=== PATIENT | male | born 1995 | race Caucasian/White ===

== ENCOUNTER 2016-11-25 11:49 | Day surgery (SDC) | payer BC ==
[~2016-11-25 11:49] MED LIST: Bupivacaine 0.25% SDV* 30 ML ONE; Lidocaine 1% INJ* 10 MG/ML 30 ML SDV ONE
[2016-11-25 15:13] VITALS: BP 111/62
--- NOTE | 2016-11-26 07:40 | OP ---
DATE OF OPERATION: 11/25/16 - [facility] DATE OF : [birth year] SURGEON: Pedro Hinojosa MD AIR [employer] OFFICER: JESSIE Reeder ANESTHESIOLOGIST: None. ANESTHESIA: Local only with 1% lidocaine with epinephrine followed by 0.25% Marcaine. PRE-OP DIAGNOSES: 1. Right middle finger tip ulnar soft tissue mass. 2. Right middle finger tip expanding intraosseous bone lesion in the setting of prior open fracture. POST-OP DIAGNOSES: 1. Right middle finger tip ulnar soft tissue mass. 2. Right middle finger tip expanding intraosseous bone lesion in the setting of prior open fracture. OPERATIVE PROCEDURE: 1. Excision of right middle finger tip deep ulnar soft tissue mass. 2. Intralesional curettage with biopsy and cultures of right middle finger distal phalanx intraosseous bone lesion in area of prior open fracture. INDICATIONS: Tushar had the fracture a couple of years ago. He was treated just by closing the skin, healed and nice alignment. He since developed a draining sinus tract on the ulnar side of the finger, which was excised previously. This had done well until recently he has been developing an enlarging soft tissue mass in the ulnar soft tissue of that finger tip. Also the finger tip has remained slightly enlarged and painful. Serial x-rays have showed an expanding intraosseous lesion in the distal radial aspect of the fingertip at the site of the prior open fracture. It is difficult for him to pinch things with that finger, any significant compression applied to that fingertip is quite painful. We talked about treatment options. I think given the fact that the intraosseous lesion is expanding, it did merit curettage to try to get diagnosis, as certainly the diagnosis of a chronic osteomyelitis cannot be definitively ruled out. We also talked about excising the ulnar soft tissue mass. It was getting quite large. He understood risks and benefits. He elected to proceed. ESTIMATED BLOOD LOSS: 5 mL. COMPLICATIONS: None. FINDINGS: The ulnar-sided soft tissue mass had a yellowish appearance. It was well defined and was sitting just right on the periosteum deep. The intraosseous bone lesion was filled with a soft, white type material. DESCRIPTION OF PROCEDURE: Tushar was seen in the preoperative holding area. The correct side, site, and procedure were identified. I anesthetized the finger with 1% lidocaine with bicarbonate. We then came back to the operating room where the arm was prepped and draped in the usual fashion. A formal time- out was performed. I began by infiltrating in the area with 0.25% plain Marcaine. I then exsanguinated the finger with the Tourni-Cot and left that arm proximally. I first turned my attention to the soft tissue mass. It felt like it was somewhat adherent to the under-lying dermis. I thought given the fact that it had potential for infection, I went ahead and ellipsed out a portion of the skin around the mass and took the dissection down sharply right down to the bone ellipsing out the entirety of the mass together with a small margin of healthy tissue. There were some areas where I could see the mass had a yellowish appearance. This entire specimen was handed off and sent to Pathology. The underlying periosteum was curetted off and cleaned up with a [place] blade. Any remaining tissue that had the appearance of being remotely unhealthy was excised with [place] blade. I then irrigated out this wound and the skin was closed with 5-0 nylon interrupted sutures. I then turned my attention to the bone lesion. I brought in the mini C-arm and marked out my incision. The approach was made volarly and just on the radial aspect of the fingertip where I carried the dissection down in a straight line sharply until I got to the distal phalanx. Full-thickness subperiosteal flaps were raised to expose the volar surface of the bone. It was little pooched out in the area of the cyst. I brought in the mini C-arm and just again made sure I was in the exact right location. I then used the curette to puncture through the thin cortical shell. Immediately, a significant amount of white thick creamy material came out. I expanded the cortical bone window to almost the entire size of the lesion. This was curetted out until it was completely cleaned and nothing but bone remained. The dorsal rim and radial rims were very thin. I therefore decided not to bring in the jero as I thought I would likely fracture the remaining distal phalanx. I then took all the specimen that I collected and divided up and sent it off for aerobic, anaerobic, fungal, and mycobacterial cultures as well as a portion of the specimen was sent for permanent pathology. We irrigated the wound out copiously and once I was satisfied that the curettage was complete, I went ahead and closed the skin with some 5-0 nylon interrupted sutures. The wounds were dressed with Xeroform , some one inch Kendrick, and then a [place]an dressing was applied. The Tourni-Cot was released sharply proximally. The fingertip pinked up immediately. He was then taken to the recovery room in stable condition. [id number]/[facility] #: [id number] MTDD
--- NOTE | 2016-11-26 10:46 | RAD ---
INDICATION: Fluoroscopic guidance operative procedure on lesion in the distal phalanx of the RIGHT third finger. COMPARISON: November 12, 2016 radiographs. TECHNIQUE: 5 seconds fluoroscopy. FINDINGS: Spot image documents and instrument at the level of the well-circumscribed lucent lesion at the distal phalanx. IMPRESSION: Procedural fluoroscopy. CPT II Codes: [id number]
== END 2016-11-25 15:19 | disposition home or self-care (01) ==
LOC: OREAST 11:49
PROVIDERS: ATTEND Orthopaedic Surgery Hand Surgery
PROC: 0PBT0ZX Excision of Right Finger Phalanx, Open Approach, Diagnostic (ICD-10-PCS; 2016-11-25)
PROC: 0HBFXZZ Excision of Right Hand Skin, External Approach (ICD-10-PCS; principal; 2016-11-25 13:00)
DX: L72.9 Follicular cyst of the skin and subcutaneous tissue, unspecified (principal); M89.9 Disorder of bone, unspecified
CPT/HCPCS: 76000; 87070; 87073; 87102; 87116; 87205; 87206; 88304; 88305; J2001